=== PATIENT | female | born 1960 | race Asian ===

== ENCOUNTER 2017-01-17 08:59 | Day surgery (SDC) | payer BC ==
[~2017-01-17] VITALS: Ht 160 cm; Wt 60.0 kg
[~2017-01-17 08:59] MED LIST: ALBUMIN; ALLEGRA30 MG PO; ALLEGRA60 MG; AMOXICILLIN500 M; AMOXICILLIN500 MG PO; BENADRYL25 MG; BENADRYL25 MG PO; CALCITRIOL0.5 MC1 PO; CARVEDILOL12.5 M1 PO; CASTIVA COOLIN113 GM; CASTIVA COOLIN113 GM TP; CLINDAMYCIN HC300 MG; COREG12.5 MG; COREG12.5 MG PO; COREG6.25 M1 PO; COREG6.25 MG; COREG6.25 MG PO; COUMADIN3 M1 PO; COUMADIN3 MG PO; DOMEBORO PACKE1 EACH PO; DOXEPIN HCL10 M1 PO; ELIPHOS667 MG/TAB PO; EMLA CREAM30 GM; EMLA CREAM30 GM TP; EPOGEN3000 U/ML; ESTRACE0.5 MG; FLEXERIL5 MG; FOSAMAX35 MG; GENTAMICIN SULF15 GM TP; HYDROCODON-ACE1 EA16 PO; HYDROCORTISONE20 M1 PO; INDOMETHACIN25 MG; INDOMETHACIN25 MG PO; KAYEXALATE453.6 GM; LOMOTIL 2.5-0.1 EACH PO; LOMOTIL TABLET1 TAB; LOMOTIL TABLET1 TAB PO; LOVENOX60 MG/0.6 SQ; MOTRIN IB200 MG; MULTIVITAMIN1 TAB; MULTIVITAMIN1 TAB PO; MULTIVITAMINS1 EAC6 PO; NON-ASA500 M1 PO; NORCO 5/325 TAB1 TAB; NORCO 5/3251 TAB PO; NORCO 7.5/325 T1 TAB; OXYGEN; PANTOPRAZOLE SO40 M3 PO; PERIDEX118 ML SSP; PLAVIX75 MG; SENSIPAR30 M1 PO; SENSIPAR30 MG; SENSIPAR30 MG PO; SODIUM POL PO; TYLENOL500 MG; VENOFER100 MG/5 M; VITAMIN D250000 UNI1 PO; ZEMPLAR5 MCG/ML; ZOFRAN ODT4 MG/UDTAB; ZOFRAN4 M2 PO; ZOFRAN4 MG PO; ZOHYDRO ER10 M1 PO; ZOHYDRO ER20 M1 PO; ZYLOPRIM100 M1 PO; [UNRECOGNIZED DRUG - OTHER] IV; [UNRECOGNIZED DRUG - OTHER] PO
[2017-01-17] MEDS ORDERED: TOPROL XL25 M1 PO (09:56)
[2017-01-17 10:22] LABS: INR 2.7 INR (0.9-1.1); PROTHROMBIN TIME 33.1 SECONDS (9.0-13.6)
== END 2017-01-17 13:03 ==
LOC: SHSB 08:59 → RADSP 08:59
PROVIDERS: Anesthesiology
PROC: B51WYZZ Fluoroscopy of Dialysis Shunt/Fistula using Other Contrast (ICD-10-PCS; principal; 2017-01-17)
PROC: 057Y3ZZ Dilation of Upper Vein, Percutaneous Approach (ICD-10-PCS; 2017-01-17)
DX: T82.858A Stenosis of other vascular prosthetic devices, implants and grafts, initial encounter (principal); I13.2 Hypertensive heart and chronic kidney disease with heart failure and with stage 5 chronic kidney disease, or end stage renal disease; N18.6 End stage renal disease; I50.9 Heart failure, unspecified; I25.10 Atherosclerotic heart disease of native coronary artery without angina pectoris; I42.9 Cardiomyopathy, unspecified; M19.049 Primary osteoarthritis, unspecified hand; K21.9 Gastro-esophageal reflux disease without esophagitis; Z79.899 Other long term (current) drug therapy; Z79.01 Long term (current) use of anticoagulants; Z88.1 Allergy status to other antibiotic agents; Z88.8 Allergy status to other drugs, medicaments and biological substances; Z91.048 Other nonmedicinal substance allergy status; Z99.2 Dependence on renal dialysis
CPT/HCPCS: C1725; C1769; C1887; J7030